=== PATIENT | female | born 1995 | race Caucasian/White ===

== ENCOUNTER 2022-05-22 17:13 | Emergency (ER) | payer OTHER ==
[~2022-05-22] VITALS: Ht 157.5 cm; Wt 66.2 kg
[2022-05-22 17:30] VITALS: BP 124/80
[2022-05-22] MEDS ORDERED: ONDA-188 PO (18:49)
[2022-05-22] MEDS ORDERED: ACET-10509 PO (18:49)
[2022-05-22] MEDS ORDERED: CEPH-588 PO (18:54)
[2022-05-22 19:26] VITALS: BP 124/80
--- NOTE | 2022-05-22 19:26 | NUR ---
Patient discharged with v/s stable. Written and verbal after care instructions given and explained. Patient alert, oriented and verbalized understanding of instructions. Ambulatory with steady gait. All questions addressed prior to discharge. ID band removed. Patient advised to follow up with PMD. Rx of TYLENOL, KEFLEX, ZOFRAN given. Patient educated on indication of medication including possible reaction and side effects. Opportunity to ask questions provided and answered.
== END 2022-05-22 19:26 | disposition home or self-care (01) ==
LOC: MED 17:13
DX: S06.0X0A Concussion without loss of consciousness, initial encounter (principal); N39.0 Urinary tract infection, site not specified; W18.30XA Fall on same level, unspecified, initial encounter; Y93.89 Activity, other specified; Y92.89 Other specified places as the place of occurrence of the external cause; Y99.8 Other external cause status
CPT/HCPCS: 70450; 81002; 81025; 99284